=== PATIENT | male | born 2005 | race Caucasian/White ===

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

== ENCOUNTER 2025-03-12 04:00 | Emergency (ER) | payer MEDICAID ==
[2025-03-12] MEDS: Lidocaine 1% with EPINEPHrine 1:100,000 50 ML MDV INFILT ONE (04:35)
[2025-03-12] MEDS: Bacitracin Oint 1 GM U/D Packet TOP ONE (04:43)
[2025-03-12 05:18] VITALS: BP 112/61; PULSE 101
== END 2025-03-12 05:00 | disposition home or self-care (01) ==
LOC: LB.ED 04:00
DX: S61.411A Laceration without foreign body of right hand, initial encounter (principal); W22.8XXA Striking against or struck by other objects, initial encounter
CPT/HCPCS: 12001; 73130-RT; 99283

== ENCOUNTER 2025-06-16 19:02 | Emergency (ER) | payer SELFPAY ==
[2025-06-16] MEDS ORDERED: Sodium Chloride 0.9% 10 ML Syringe FLUSH PRN (19:35)
[2025-06-16 23:01] VITALS: BP 134/90; PULSE 83
== END 2025-06-16 21:10 | disposition home or self-care (01) ==
LOC: LB.ED 19:02
DX: S42.022A Displaced fracture of shaft of left clavicle, initial encounter for closed fracture (principal); V86.55XA Driver of 3- or 4- wheeled all-terrain vehicle (ATV) injured in nontraffic accident, initial encounter
CPT/HCPCS: 73030-LT; 96374; 99283-25; A9270-GY; J2270